=== PATIENT | male | born 2000 | race Asian ===

== ENCOUNTER 2024-09-22 07:20 | Outpatient (CLI) | payer BC ==
[2024-09-22] MEDS ORDERED: Iopamidol 370 76% 100 ML VIAL ONE (10:21)
== END 2024-09-22 07:21 | disposition home or self-care (01) ==
LOC: CSHCT 07:20
PROVIDERS: ATTEND Family Medicine
DX: R10.32 Left lower quadrant pain (principal); M47.816 Spondylosis without myelopathy or radiculopathy, lumbar region
CPT/HCPCS: 74178; Q9967